=== PATIENT | female | born 1990 | race Caucasian/White ===

== ENCOUNTER 2017-10-09 20:12 | Observation (INO) ==
--- NOTE | 2017-10-09 21:31 | OB/GYN Progress Note ---
Date of Encounter: 10/09/17 Time of Encounter: 21:28 - Assessment and Plan (1) 23 weeks gestation of Status: Acute (2) Vaginal pain Status: Acute Closed cervix on exam UA with culture not indicated. Vaginosis panel sent. Discharged home. Vaginosis panel + for BV, ot contacted and Rx called to pharmacy of choice. Subjective - Subjective Interval history: 23+1 presents with complaints of vaginal pain. Pt states for the last week she has been having increasing pelvic pain and discomfort. Was seen at [facility] two days ago and was told she was negative for UTI and had a closed cervix. Reports good movement, denies vaginal bleeding or leaking of fluid , dysuria, or urgency with urination. care with Dr. Rodrigez. Antepartum ROS: movement normal, no loss of fluid, no vaginal bleeding, no contractions Objective - Vital Signs Vital Signs: Intake and Output 10/09/17 10/09/17 10/09/17 07:59 15:59 23:59 Other: Weight 66.3 kg Patient Weight 10/09/17 23:59 Weight 66.3 kg - Exam FHR: auscultation normal FHR comments: Appropriate for gesational age baseline 135 Abdomen: Present: normal appearance, soft, gravid Cervical dilation: Closed.
[2017-10-09 21:46] LABS: Bilirubin,Urine Small (Negative); Blood,Urine Moderate (Negative); Clarity,Urine Clear (Clear); Color,Urine Yellow (Yellow); Glucose,Urine (UA) Normal (Normal); Ketones,Urine Negative (Negative); Leukocyte Esterase,Urine Negative (Negative); Nitrite,Urine Negative (Negative); Protein,Urine Negative (Neg-Trace); Urobilinogen,Urine Normal (Normal)
[2017-10-09 21:47] LABS: Hyaline Casts,Urine Few per lpf (None-Few); Squamous Epithelial Cell,Urine Many per lpf (None-Few)
[2017-10-09 21:59] LABS: Mucus,Urine Few (Few)
[2017-10-09 22:00] LABS: Bacteria,Urine Few per hpf (None-Few); Uric Acid Crystals,Urine Present
[2017-10-09 22:48] LABS: Candida DNA Not Detected (Not Detect); Gardnerella DNA ***DETECTED*** (Not Detect); Trichomonas DNA Not Detected (Not Detect)
[2017-10-10 00:38] LABS: Amphetamine Screen,Urine Negative ng/mL (Cutoff=1000); Barbiturate Screen,Urine Negative ng/mL (Cutoff=200); Benzodiazepines Screen,Urine Negative ng/mL (Cutoff=200); Cannabinoid Screen,Urine Negative ng/mL (Cutoff = 50); Cocaine Screen,Urine Negative ng/mL (Cutoff= 300); Opiate Screen,Urine Negative ng/mL (Cutoff=300); Phencyclidine Screen,Urine Negative ng/mL (Cutoff=25)
== END 2017-10-09 22:24 | disposition home or self-care (01) ==
LOC: 1NENULAB
PROVIDERS: ADMIT Obstetrics & Gynecology; ATTEND Obstetrics & Gynecology

== ENCOUNTER → 2018-01-26 23:35 | Observation (INO) ==
[2018-01-26 22:32] LABS: Amphetamine Screen,Urine Negative ng/mL (Cutoff=1000); Barbiturate Screen,Urine Negative ng/mL (Cutoff=200); Benzodiazepines Screen,Urine Negative ng/mL (Cutoff=200); Cannabinoid Screen,Urine Negative ng/mL (Cutoff = 50); Cocaine Screen,Urine Negative ng/mL (Cutoff= 300); Opiate Screen,Urine Negative ng/mL (Cutoff=300); Phencyclidine Screen,Urine Negative ng/mL (Cutoff=25)
[2018-01-26 22:46] LABS: Bilirubin,Urine Negative (Negative); Blood,Urine Negative (Negative); Clarity,Urine Cloudy (Clear); Color,Urine Yellow (Yellow); Glucose,Urine (UA) Normal (Normal); Ketones,Urine Negative (Negative); Leukocyte Esterase,Urine Negative (Negative); Nitrite,Urine Negative (Negative); PH,Urine 6.5 pH Units (5.0-8.0); Protein,Urine Negative (Neg-Trace); Specific Gravity,Urine 1.015 (1.010-1.025); Urobilinogen,Urine Normal (Normal)
[2018-01-26 22:47] LABS: Basophils % 0.2 %; Eosinophils # 0.1 K/mcL (0.0-0.6); Eosinophils % 1.1 %; Hematocrit 28.7 % (35.3-44.9); Hemoglobin 10.1 g/dL (11.5-15.4); Immature Granulocytes % 0.4 % (0-4); Lymphocytes # 2.1 K/mcL (0.6-4.6); Lymphocytes % 23.1 %; Mean Corpuscular HGB Conc 35.2 g/dL (31.6-35.5); Mean Corpuscular Hemoglobin 30.7 pg (28.0-33.3); Mean Corpuscular Volume 87.2 fL (83.0-100.0); Mean Platelet Volume 10.5 fL (9.4-12.4); Monocytes # 0.7 K/mcL (0.0-1.3); Monocytes % 7.5 %; Neutrophils # 6.1 K/mcL (1.6-8.9); Platelet Count 177 K/mcL (140-400); Red Blood Count 3.29 M/mcL (3.82-4.97); Red Cell Distribution Width 11.9 % (11.5-14.5); Segmented Neutrophils % 67.7 %
[2018-01-26 22:47] LABS: Bacteria,Urine Few per hpf (None-Few); RBC,Urine 0-3 per hpf (0-3); Squamous Epithelial Cell,Urine Many per lpf (None-Few)
[2018-01-26 23:00] LABS: Protein/Creatinine Ratio,Urine 0.16 mg/mg (0.00-0.20)
--- NOTE | 2018-01-26 23:04 | OB/GYN Progress Note ---
Date of Encounter: 01/26/18 Time of Encounter: 22:55 - Assessment and Plan (1) 38 weeks gestation of Current Visit: Yes Status: Acute 38 weeks 5 days early term IUP GBS unknown UA negative BPs WNL PIH labs pending Serial VE pending Anticipate discharge Encourage patient to call primary OB and make appointment OPAL Subjective - Subjective Principal diagnosis: Abdominal pain Interval history: at 38 weeks and 5 days presents to triage with complaints abdominal and back pain. Denies vaginal bleeding and leaking fluid. States babys movements have "slowed down." Denies COONEY or epigastric pain, states had an episode five days ago when she saw "black spots" for approximately an hour and a half. Patient had been staying at [facility] in [place] due to daughter being hospitalized and states she felt it was due to being tired and unable to sleep well. Receives care with Dr. Rodrigez at [place], but has not been to a appointment for two months. Patient states she will be delivering here. Antepartum ROS: no loss of fluid, no vaginal bleeding Objective - Exam FHR: category 1 FHR comments: FHR 120 Auscultation: bilateral: normal Abdomen: Present: normal appearance, gravid (Vertex by Ha's ) Uterus: Absent: tenderness Cervical dilation: 1 Cervix effacement: 80 station: -2 Comments: VE per RN Reflexes +3 +2 pitting edema lower extremities - Labs Labs: Abnormal lab results RBC 3.29 M/mcL (3.82-4.97) L 01/26/18 22:30 Hgb 10.1 g/dL (11.5-15.4) L 01/26/18 22:30 Hct 28.7 % (35.3-44.9) L 01/26/18 22:30 Urine Clarity Cloudy (Clear) A 01/26/18 22:25
[2018-01-26 23:06] LABS: Hyaline Casts,Urine None Seen per lpf (None-Few); Mucus,Urine Moderate (Few)
[2018-01-26 23:11] LABS: Alanine Aminotransferase < 3 Units/L (7-52); Aspartate Amino Transferase 8 Units/L (13-39); BUN/Creatinine Ratio 8 (6-26); Blood Urea Nitrogen 4 mg/dL (6-20); Lactate Dehydrogenase 131 Units/L (140-271); Uric Acid 4.7 mg/dL (2.3-7.6); eGFR For African Americans > 60 (> 60); eGFR For Non-African Americans > 60 (> 60)
== END | disposition home or self-care (01) ==
LOC: 1NENULAB
PROVIDERS: ADMIT Advanced Practice Midwife; ATTEND Advanced Practice Midwife

== ENCOUNTER 2018-01-31 06:15 | Inpatient (IN) ==
[2018-01-31 00:56] LABS: Amphetamine Screen,Urine Negative ng/mL (Cutoff=1000); Barbiturate Screen,Urine Negative ng/mL (Cutoff=200); Benzodiazepines Screen,Urine Negative ng/mL (Cutoff=200); Cannabinoid Screen,Urine Negative ng/mL (Cutoff = 50); Cocaine Screen,Urine Negative ng/mL (Cutoff= 300); Opiate Screen,Urine Negative ng/mL (Cutoff=300); Phencyclidine Screen,Urine Negative ng/mL (Cutoff=25)
[2018-01-31 01:08] LABS: Basophils % 0.1 %; Eosinophils # 0.1 K/mcL (0.0-0.6); Eosinophils % 0.3 %; Hematocrit 30.7 % (35.3-44.9); Immature Granulocytes % 0.4 % (0-4); Lymphocytes % 13.3 %; Mean Corpuscular HGB Conc 35.8 g/dL (31.6-35.5); Mean Corpuscular Hemoglobin 30.5 pg (28.0-33.3); Monocytes % 6.3 %; Platelet Count 187 K/mcL (140-400); Red Blood Count 3.61 M/mcL (3.82-4.97); Red Cell Distribution Width 11.9 % (11.5-14.5); Segmented Neutrophils % 79.6 %
[2018-01-31 01:33] LABS: Alanine Aminotransferase < 3 Units/L (7-52); Aspartate Amino Transferase 8 Units/L (13-39); BUN/Creatinine Ratio 8 (6-26); Blood Urea Nitrogen 4 mg/dL (6-20); Lactate Dehydrogenase 121 Units/L (140-271); Uric Acid 4.6 mg/dL (2.3-7.6); eGFR For African Americans > 60 (> 60); eGFR For Non-African Americans > 60 (> 60)
[2018-01-31 01:42] LABS: Protein/Creatinine Ratio,Urine 0.15 mg/mg (0.00-0.20)
--- NOTE | 2018-01-31 01:47 | OB/GYN Progress Note ---
Date of Encounter: 01/31/18 Time of Encounter: 01:44 - Assessment and Plan (1) 39 weeks gestation of Current Visit: Yes Status: Acute (2) Uterine contractions during Current Visit: Yes Status: Acute Cervix remains unchanged after 2 hours of serial cervical exams. The patient has very uncomfortable, and having occasional early decelerations with contractions. Cervix feels stenotic. We will give 1 dose of Nubain for therapeutic rest, and recheck patient at 0600, unless condition warrants earlier exam (3) Elevated blood pressure affecting in third trimester, antepartum Current Visit: Yes Status: Acute Patient states she has had increased blood pressure since young daughter was admitted to ICU after drowning incident, and recent weeks. PIH labs negative. Subjective - Subjective Interval history: 39+3 weeks gestation presents to triage for evaluation of contractions. Patient is under the care of Dr. Rodrigez at [place]. Patient states she has been having contractions off and on for a couple days, her physician stripped her membranes at her office visit yesterday. At 10:00 PM her contractions became stronger more intense and closer together. Reports good movement, denies vaginal bleeding. Patient states she has had a increased discharged and her underwear is wet most of the time unsure if she leaking fluid. Antepartum ROS: loss of fluid, movement normal, contractions, no vaginal bleeding Objective - Vital Signs Vital Signs: Intake and Output 01/30/18 01/30/18 01/31/18 15:59 23:59 07:59 Other: Weight 68.6 kg Patient Weight 01/31/18 23:59 Weight 68.6 kg - Exam FHR: auscultation normal FHR comments: Baseline 135 Abdomen: Present: soft, gravid Cervical dilation: /-1 stenotic cervix. Pt had leep 210 after last child. - Labs Labs: Abnormal lab results WBC 15.1 K/mcL (4.3-11.1) H D 01/31/18 00:49 RBC 3.61 M/mcL (3.82-4.97) L 01/31/18 00:49 Hgb 11.0 g/dL (11.5-15.4) L 01/31/18 00:49 Hct 30.7 % (35.3-44.9) L 01/31/18 00:49 MCHC 35.8 g/dL (31.6-35.5) H 01/31/18 00:49 Neutrophils # 12.0 K/mcL (1.6-8.9) H 01/31/18 00:49 BUN 4 mg/dL (6-20) L 01/31/18 00:50 Creatinine 0.51 mg/dL (0.60-1.20) L 01/31/18 00:50 AST 8 Units/L (13-39) L 01/31/18 00:50 ALT < 3 Units/L (7-52) L 01/31/18 00:50 Lactate Dehydrogenase 121 Units/L (140-271) L 01/31/18 00:50 Urine Total Protein 26 mg/dL (1-14) H 01/31/18 00:10
[~2018-01-31 06:15] MED LIST: *HR* Nalbuphine 10 MG/ML AMPUL IV ONE; *HR* Nalbuphine 10 MG/ML AMPUL IVP PRN; Famotidine 20 MG/2 ML VIAL IVP PRN; Metoclopramide 10 MG/2 ML VIAL IVP PRN; Naloxone 0.4 MG/ML INJ IVP PRN; Ondansetron 4 MG/2 ML VIAL IVP PRN; Ringers Solution, Lactated 1,000 ML IVC SCH
--- NOTE | 2018-01-31 08:15 | OB/GYN History & Physical ---
Date of Encounter: 01/31/18 Time of Encounter: 08:10 Assessment and Plan (1) 39 weeks gestation of Current visit: Yes Status: Acute (2) Uterine contractions during Current visit: Yes Status: Acute Discussed with Dr. Ramirez, due to stenotic cervix, patient pain, 39 weeks gestation and elevated pressures we will admit patient Admit to labor and delivery Nubain and epidural as desired Anticipate (3) Elevated blood pressure affecting in third trimester, antepartum Current visit: Yes Status: Acute PIH labs negative History of Present Illness Chief complaint: Contractions HPI: Ms. Feng is a 27 year old female 39+3 weeks gestation patient with care with Dr. Rodrigez. Presents to triage with complaints of continuing contractions. Patient has been having contractions over the last couple days, but has increased in pain and discomfort since 10 PM last night. Complaining of contractions every 2-3 minutes that are painful. Reports good movement, denies vaginal bleeding, patient does states she has been leaking some fluid was negative ferning 2. Patient with minimum care only had [address] Rodrigez [facility] from 30 weeks to term patient says ultrasounds have been normal and she did do 1 hour glucose but we do not have those records. Labs: O+, rubella nonimmune, varicella immune, all other serologies negative. GBS negative per [facility]i lab on 01/26 lab Past Med Surg Social Fam HX - Past Medical History Medical history: asthma, thyroid disease Psychiatric history: anxiety - Social History Smoking Status: Current every day smoker Smokeless Tobacco Status: No Alcohol use: none Drug use: none - Family History Father Living Status: Still Living Hx Family Cardiac Disorders: Yes (HTN) Obstetrical History - Pregnancies : 5 Para: 2 Term: 1 : 1 Ab's: 2 Livin Medications and Allergies Albuterol Inhaler 1 tab PO DAILY 10/09/17 [History] Citalopram 40 mg PO DAILY 10/09/17 [History] [facility] G[facility] 1 tab PO DAILY 10/09/17 [History] Pepcid 01/31/18 [History] 3 Allergy/AdvReac Type Severity Reaction Status Date / Time clindamycin Allergy Hypotension Verified 01/31/18 00:22 Exam - Constitutional Constitutional: well developed, well nourished, no acute distress, average body habitus - Neck Neck exam: full ROM - Lungs Respiratory exam: CTAB - Cardiovascular Cardiovascular exam: RRR - Abdomen Abdomen: Present: gravid, non tender - Extremities Extremities exam: normal capillary refill, normal inspection Deep Tendon Reflex Grade: 2+ Normal - Cervix Dilation: 2 Effacement: 100 Station: -1 Results Result Diagrams: 01/31/18 00:49 01/31/18 00:50 Abnormal lab results WBC 15.1 K/mcL (4.3-11.1) H D 01/31/18 00:49 RBC 3.61 M/mcL (3.82-4.97) L 01/31/18 00:49 Hgb 11.0 g/dL (11.5-15.4) L 01/31/18 00:49 Hct 30.7 % (35.3-44.9) L 01/31/18 00:49 MCHC 35.8 g/dL (31.6-35.5) H 01/31/18 00:49 Neutrophils # 12.0 K/mcL (1.6-8.9) H 01/31/18 00:49 BUN 4 mg/dL (6-20) L 01/31/18 00:50 Creatinine 0.51 mg/dL (0.60-1.20) L 01/31/18 00:50 AST 8 Units/L (13-39) L 01/31/18 00:50 ALT < 3 Units/L (7-52) L 01/31/18 00:50 Lactate Dehydrogenase 121 Units/L (140-271) L 01/31/18 00:50 Urine Total Protein 26 mg/dL (1-14) H 01/31/18 00:10 All other labs normal. - VTE Reasons for not Prescribing Prophylaxis: Treatment not Indicated - Low risk for VTE
[2018-01-31] MEDS ORDERED: *HR* FentaNYL (PF) 100 MCG/2 ML VIAL EP ONE (08:20)
[2018-01-31] MEDS ORDERED: Epidural Premix (fent/bupiv) 110 ML EP SCH (08:30)
--- NOTE | 2018-01-31 08:30 | Anesthesia Evaluation PreOp ---
Date of Encounter: 01/31/18 Time of Encounter: 08:28 - Past History Planned Operation: catie Cardiac History: Denies any Significant Hx Pulmonary History: Smoker (1/2 ppd), Pack/yr (3) TAXICAB DRIVER History: Denies Any Significant HX Other Medical History: GERD, Other (anxiety disorder) Anesthesia History: No Prior Anesthetic Complications, Past Anesthesia (catie, bmt , d&c, wrist) : Yes Test: Positive Alcohol Use: none Drug use: none Medications and Allergies Albuterol Inhaler 1 tab PO DAILY 10/09/17 [History] Citalopram 40 mg PO DAILY 10/09/17 [History] [facility] G[facility] Vit[facility] 1 tab PO DAILY 10/09/17 [History] Pepcid 01/31/18 [History] 3 Allergy/AdvReac Type Severity Reaction Status Date / Time clindamycin Allergy Hypotension Verified 01/31/18 00:22 - Meds/Allergy Pre-op Review Medications Reviewed: Yes Allergies Reviewed: Yes Beta Blockers on Current Med List: No Anesthesia Results - Labs 01/31/18 00:49 01/31/18 00:50 Anesthesia Exam see nsg note Height: 5'1" Weight: 68 NPO (# of Hours): 3 Pain Scale: 8 Pain Scale Used: Numeric (1 - 10) - HEENT Pupil (Motor): Pupils equal Mallampati: II Teeth: Normal Oral Opening: Greater than 3 - TAXICAB DRIVER LOC: Oriented TAXICAB DRIVER Motor: Normal RUE, Normal LUE, Normal RLE, Normal LLE, Normal Face TAXICAB DRIVER Sensory: Normal: RUE, LUE, RLE, LLE, Face - Cardiac Rhythm: Regular Murmur: None - Pulmonary Breath Sounds: bilateral Clear Respiratory Effort: Symmetrical Anesthesia Assess/Plan ASA Score: 2 Modified Paul Scale for Level of Consciousness: Cooperative, oriented, and tranquil Anesthetic Plan: Regional Autologous Blood: No Monitoring Plan: Standard Monitors Recovery Plan: Other (risks discussed questions answered, consented)
[2018-01-31] MEDS ORDERED: Epidural Premix (fent/bupiv) 110 ML EP ONE (08:34)
--- NOTE | 2018-01-31 09:00 | Anesthesia Procedures ---
Date of Encounter: 01/31/18 Time of Encounter: 08:58 Procedures: Anesthesia - Epidural/Spinal Patient ID/Chart reviewed: Yes Patient examined: Yes OB Eval: Gestational age: 39.3 OB Eval: : 5 OB Eval: Hx Para: 2 OB Eval: Dilated at (cm): 3 OB Eval: Contractions: Non-stressed pattern Consent Obtained: Yes Supplemental Oxygen: None/Room Air Site Prep: Aseptic Technique, 0.5% Chlorhexidine/Alcohol Patient position: upright Local Anesthetic: Lidocaine 1% Amount of Local Anesthetic used: 4 Touhy Needle Gauge: 18 Touhy Needle Depth (cm): 5 Catheter Depth at Skin (cm): 15 Test Dose (1.5% Lido + Epi): Volume given (mls): 3 Test Dose Result: Negative Loading Dose: Fentanyl (mcg): 100 Loading Dose: Other: rop 0.2% 10cc Loading Dose Administered: Thru Touhy Needle Infusion Med: 0.125% Bupivacaine w/ 2 mcg/ml Fentanyl Infusion Rate (mls/hr): 14 (pcea 14cc/hr q30") Catheter Secured in Place: Tegaderm Interspace Used: L2-L3 Loss of Resistance (ISAURA): Yes Blood: No CSF: No Paresthesia: No Procedure: aseptic, tolerated well, effective Vitals + FHT's: 150/98 88 16 fht 133
[2018-01-31] MEDS ORDERED: Oxytocin 20 units/ LR 1000 mL 20 UNIT/1,000 ML BAG IVC ONE (09:54)
[2018-01-31] MEDS ORDERED: Oxytocin 20 units/ LR 1000 mL 20 UNIT/1,000 ML BAG IVC SCH ×2 (10:00→17:57)
--- NOTE | 2018-01-31 11:47 | OB Labor Progress Note ---
Date of Encounter: 01/31/18 Time of Encounter: 11:44 Labor Progress Note - Subjective Subjective: Patient resting comfortable with epidural in place. Patient denies any questions or concerns. - Cervix Cervix: 4/100/0 - Heart Tones Heart Tones: 115 bpm moderate variability +15x15 accels no decels noted. - [place]: 2-4 min apart - Interventions Interventions: SVE, AROM small amount of clear fluid. IUPC placed without difficulty. Patient tolerated well. - Plan Plan: Continue labor management anticipated
--- NOTE | 2018-01-31 14:24 | OB Labor Progress Note ---
Date of Encounter: 01/31/18 Time of Encounter: 14:22 Labor Progress Note - Subjective Subjective: Patient resting comfortably with epidural in placed. Patient denies any questions or concerns. Patient does report feeling pressure. - Cervix Cervix: 6/100/0 - Heart Tones Heart Tones: 115 bpm moderate variability +15x15 accels no decels noted. Cat. 1 tracing - Casselman Casselman: 2-3 min apart - Interventions Interventions: SVE, patient repositioned. - Plan Plan: Continue labor management.
--- NOTE | 2018-01-31 15:15 | OB/GYN Procedure Note ---
Delivery - Delivery Date: 01/31/18 Provider: Gloria Roca Intrapartum events: none Delivery augmentation: pitocin Delivery monitor: external FHT, external uterine Anesthesia: epidural Quantitated Blood Loss: 300 - (s) A Delivery Date: 01/31/18 Infant Delivery Time: 14:52 Presentation: vertex Position: CHAU Route of delivery: Gender: Male Viability: Viable Pounds: 6 Ounces: 6 Weight Gram: 2885 kg at 1 minute: 8 at 5 mins: 9 Shoulder Dystocia: not encountered Specimens collected: cord blood Placenta: spontaneous, uterine exploration Cord: 3 umbilical vessels - Repair Episiotomy: none Laceration Description: None - Complications Delivery complications: none - Disposition Mom disposition: stable in LDR [place] disposition: stable in LDR - Comments Comments: Called to LDR FHR in 70's, Pitocin off, O2 mask applied. Patient complete and + 2 station. Patient placed in stirrups and prepped for delivery. Under maternal effort patient spontaneously delivered a viable male over an intact perineum. was placed on maternal abdomen. Cord was clamped and cut after pulsations ceased. Cord blood was collected. Placenta delivered spontaneously and intact. Pericare provided all counts correct. remains skin to skin. Both mother and stable in LDR for 2 hour recovery.
[2018-01-31] MEDS ORDERED: Measles/Mumps/Rubella Vacc 0.5 ML VIAL SQ PRN (17:57)
[2018-01-31] MEDS ORDERED: Benzocaine/Menthol 56 GM AEROSOL SPRAY TP PRN (17:57)
[2018-01-31] MEDS ORDERED: Acetaminophen 325 MG TABLET PO PRN (17:57)
[2018-01-31] MEDS ORDERED: Lanolin 7 G OINT...G. TP PRN (17:57)
[2018-01-31] MEDS ORDERED: Ibuprofen 600 MG TABLET PO PRN (17:57)
[2018-02-01 07:53] LABS: Basophils % 0.2 %; Eosinophils # 0.1 K/mcL (0.0-0.6); Eosinophils % 0.7 %; Hematocrit 27.3 % (35.3-44.9); Hemoglobin 9.5 g/dL (11.5-15.4); Immature Granulocytes % 0.4 % (0-4); Lymphocytes # 2.5 K/mcL (0.6-4.6); Lymphocytes % 16.9 %; Mean Corpuscular HGB Conc 34.8 g/dL (31.6-35.5); Mean Corpuscular Hemoglobin 29.7 pg (28.0-33.3); Mean Corpuscular Volume 85.3 fL (83.0-100.0); Monocytes # 1.1 K/mcL (0.0-1.3); Monocytes % 7.2 %; Neutrophils # 11.1 K/mcL (1.6-8.9); Platelet Count 167 K/mcL (140-400); Red Cell Distribution Width 11.7 % (11.5-14.5); Segmented Neutrophils % 74.6 %
[2018-02-01 07:59] LABS: Alanine Aminotransferase < 3 Units/L (7-52); Aspartate Amino Transferase 12 Units/L (13-39); BUN/Creatinine Ratio 8 (6-26); Blood Urea Nitrogen 3 mg/dL (6-20); Lactate Dehydrogenase 157 Units/L (140-271); Uric Acid 4.5 mg/dL (2.3-7.6); eGFR For African Americans > 60 (> 60); eGFR For Non-African Americans > 60 (> 60)
[2018-02-01 08:27] VITALS: BP 118/78
[2018-02-01] MEDS ORDERED: Prenatal Vit/FA 1 EACH TABLET PO SCH (09:00)
[2018-02-01] MEDS ORDERED: Acetaminophen 325 MG TABLET PO ONE (09:36)
--- NOTE | 2018-02-01 11:08 | Discharge Summary ---
Date of Encounter: 02/01/18 Time of Encounter: 11:04 - Discharge Diagnosis (1) Vaginal delivery Priority: Primary Status: Acute Comments: Feeling well-pain controlled with by mouth pain meds Tolerating regular diet Ambulating independently Voiding independently Passing flatus, but no BM yet Lochia light Discharge home today (2) Breast feeding status of mother Priority: Secondary Status: Acute Comments: when necessary (3) anemia Priority: Secondary Status: Acute Comments: Continue iron twice a day through follow-up with primary OB - Discharge Medications Prescriptions: Ibuprofen [Motrin] 800 mg PO Q8HR PRN #30 tablet PRN Reason: Cramping Docusate [Colace] 100 mg PO BID #60 capsule Ferrous Sulfate 325 mg PO BID #60 tablet Home Medications: Albuterol Inhaler 1 tab PO DAILY 10/09/17 [History] Citalopram 40 mg PO DAILY 10/09/17 [History] [facility] G[facility] 1 tab PO DAILY 10/09/17 [History] Pepcid 01/31/18 [History] Acetaminophen [Tylenol] 650 mg PO Q6HR PRN tablet 02/01/18 [Rx] Benzocaine/Menthol [place] [Dermoplast [place]] 1 appl TP QID PRN aerosol 02/01/18 [Rx] Docusate [Colace] 100 mg PO BID #60 capsule 02/01/18 [Rx] Ferrous Sulfate 325 mg PO BID #60 tablet 02/01/18 [Rx] Ibuprofen [Motrin] 800 mg PO Q8HR PRN #30 tablet 02/01/18 [Rx] Lanolin [Lansinoh] 1 appl TP TID PRN oint...g. 02/01/18 [Rx] Allergies/Adverse Reactions: 3 Allergy/AdvReac Type Severity Reaction Status Date / Time clindamycin Allergy Hypotension Verified 01/31/18 00:22 Data Procedures and tests throughout hospitalization: Laboratory Tests 01/31/18 01/31/18 01/31/18 00:10 00:10 00:49 WBC 15.1 H D RBC 3.61 L Hgb 11.0 L Hct 30.7 L MCV 85.0 MCH 30.5 MCHC 35.8 H RDW 11.9 Plt Count 187 MPV 11.0 Immature Gran % 0.4 Seg Neutrophils % 79.6 Lymphocytes % 13.3 Monocytes % 6.3 Eosinophils % 0.3 Basophils % 0.1 Neutrophils # 12.0 H Lymphocytes # 2.0 Monocytes # 1.0 Eosinophils # 0.1 Basophils # 0.0 BUN Creatinine Est GFR ( Amer) Est GFR (Non-Af Amer) BUN/Creatinine Ratio Uric Acid AST ALT Lactate Dehydrogenase Urine Creatinine 179 Protein/Creatinin Ratio 0.15 Urine Total Protein 26 H Urine Opiates Screen Negative Ur Barbiturates Screen Negative Ur Phencyclidine Scrn Negative Ur Amphetamines Screen Negative U Benzodiazepines Scrn Negative Urine Cocaine Screen Negative U Marijuana (THC) Screen Negative Blood Type Antibody Screen 01/31/18 01/31/18 02/01/18 00:50 00:50 07:04 WBC 14.9 H RBC 3.20 L Hgb 9.5 L D Hct 27.3 L MCV 85.3 MCH 29.7 MCHC 34.8 RDW 11.7 Plt Count 167 MPV 11.0 Immature Gran % 0.4 Seg Neutrophils % 74.6 Lymphocytes % 16.9 Monocytes % 7.2 Eosinophils % 0.7 Basophils % 0.2 Neutrophils # 11.1 H Lymphocytes # 2.5 Monocytes # 1.1 Eosinophils # 0.1 Basophils # 0.0 BUN 4 L Creatinine 0.51 L Est GFR ( Amer) > 60 Est GFR (Non-Af Amer) > 60 BUN/Creatinine Ratio 8 Uric Acid 4.6 AST 8 L ALT < 3 L Lactate Dehydrogenase 121 L Urine Creatinine Protein/Creatinin Ratio Urine Total Protein Urine Opiates Screen Ur Barbiturates Screen Ur Phencyclidine Scrn Ur Amphetamines Screen U Benzodiazepines Scrn Urine Cocaine Screen U Marijuana (THC) Screen Blood Type O POSITIVE Antibody Screen NEGATIVE 02/01/18 07:04 WBC RBC Hgb Hct MCV MCH MCHC RDW Plt Count MPV Immature Gran % Seg Neutrophils % Lymphocytes % Monocytes % Eosinophils % Basophils % Neutrophils # Lymphocytes # Monocytes # Eosinophils # Basophils # BUN 3 L Creatinine 0.39 L Est GFR ( Amer) > 60 Est GFR (Non-Af Amer) > 60 BUN/Creatinine Ratio 8 Uric Acid 4.5 AST 12 L ALT < 3 L Lactate Dehydrogenase 157 Urine Creatinine Protein/Creatinin Ratio Urine Total Protein Urine Opiates Screen Ur Barbiturates Screen Ur Phencyclidine Scrn Ur Amphetamines Screen U Benzodiazepines Scrn Urine Cocaine Screen U Marijuana (THC) Screen Blood Type Antibody Screen Labs on day of discharge: Labs from last 24 hours 02/01/18 02/01/18 01/31/18 07:04 07:04 00:50 WBC 14.9 H RBC 3.20 L Hgb 9.5 L D Hct 27.3 L MCV 85.3 MCH 29.7 MCHC 34.8 RDW 11.7 Plt Count 167 MPV 11.0 Immature Gran % 0.4 Seg Neutrophils % 74.6 Lymphocytes % 16.9 Monocytes % 7.2 Eosinophils % 0.7 Basophils % 0.2 Neutrophils # 11.1 H Lymphocytes # 2.5 Monocytes # 1.1 Eosinophils # 0.1 Basophils # 0.0 BUN 3 L Creatinine 0.39 L Est GFR ( Amer) > 60 Est GFR (Non-Af Amer) > 60 BUN/Creatinine Ratio 8 Uric Acid 4.5 AST 12 L ALT < 3 L Lactate Dehydrogenase 157 Antibody Screen NEGATIVE Date of admission: 01/31/18 06:16 Primary care physician: PCP MEGHNA Consults: 01/31/18 17:57 Consult to Integrity Director [CONS] Routine Comment: Vaginal delivery, consult needed Discharging clinician: Zoraida Gregory Anticipated date of discharge: 02/01/18 - Patient Status Disposition: Home, Self-Care Condition: Good Functional capacity at discharge: independent ambulation Overall status at discharge: patient is progressing back to baseline - Discharge Instructions Follow Up With: NONE,PCP [Primary Care Provider] - Ksenia Rodrigez DO [Non-Partnered Physician] - - Diet and Activity Activity: increase activity as tolerated Diet: regular diet Hospital Course Reason for admission: IUP at term Delivery: Episiotomy: none Laceration: none Other procedures: none complications: none Discharge diagnosis: IUP at term delivered [place] baby: male Time Attestation: Total time spent providing and/or coordinating discharge services: Time Spent: Less than 30 minutes Exam - Constitutional Vitals: Temp Pulse Resp BP Pulse Ox 97.4 F L 71 12 118/78 95 02/01/18 08:00 02/01/18 08:00 02/01/18 08:00 02/01/18 08:00 02/01/18 08:00 General appearance IM: A&O X 3 - Respiratory Respiratory exam: Present: CTAB - Cardiovascular Cardiovascular exam IM: Present: RRR, +S1, +S2 - GI/Abdominal GI/Abdominal exam IM: normal bowel sounds, no peritoneal signs - Rectal Rectal exam: deferred - Uterine Tone: Firm Uterus Position: 1 Finger Below Umbilicus, Midline - Extremities Exam Extremities exam IM: Present: normal capillary refill, normal inspection, radial pulses palpable and symmetrical - Neurological Exam Neurological exam: oriented X3 - Psychiatric Additional comments: Patient denies history of anxiety and depression. Signs and symptoms of depression discussed and patient verbalizes when to call for help.
== END 2018-02-01 16:16 | disposition home or self-care (01) | DRG 560 ==
LOC: 1NENULAB → 1NENUOBS 17:27
PROVIDERS: ADMIT Advanced Practice Midwife; ATTEND Advanced Practice Midwife

== ENCOUNTER → 2018-02-03 11:00 | Observation (INO) ==
--- NOTE | 2018-02-02 14:24 | OB/GYN History & Physical ---
Date of Encounter: 02/02/18 Time of Encounter: 14:21 Assessment and Plan (1) Elevated blood pressure reading Current visit: Yes Status: Acute Monitor blood pressure every 30 minutes 4 hours, then every hour 4 hours, then every shift Reported blood pressure outside of parameters (2) Breast feeding status of mother Current visit: Yes Status: Acute PRN (3) anemia Current visit: Yes Status: Acute Monitor for s/sx of anemia. At this point, she is currently asymptomatic. History of Present Illness Chief complaint: hypertension HPI: Ms. Feng is a 27 year old female who is PPD 2 from . She presents from home with c/o elevated blood pressures from ER visit earlier today. She denies COONEY, vision changes, right upper quadrant pain, and swelling. Past Med Surg Social Fam HX - Past Medical History Medical history: asthma, thyroid disease Psychiatric history: anxiety - Social History Smoking Status: Current every day smoker Smokeless Tobacco Status: No Alcohol use: occasionally Drug use: none - Family History Father Living Status: Still Living Hx Family Cardiac Disorders: Yes (HTN) Obstetrical History - Pregnancies : 3 Para: 3 Term: 3 : 0 Ab's: 0 Livin Medications and Allergies Citalopram [CeleXA] 40 mg PO DAILY 02/02/18 [History] Ibuprofen 800 mg PO Q8HR PRN 02/02/18 [History] Pepcid 20 mg PO DAILY 02/02/18 [History] 3 Allergy/AdvReac Type Severity Reaction Status Date / Time clindamycin Allergy Hypotension Verified 02/02/18 07:02 Review of System OB All systems PM: reviewed and no additional remarkable complaints except as stated Exam - Vital Signs Vital signs: Initial Vital Signs Temp Pulse Resp BP Pulse Ox 98.3 F 98 16 144/98 99 02/02/18 12:15 02/02/18 12:15 02/02/18 12:15 02/02/18 12:15 02/02/18 12:15 - Constitutional Constitutional: well developed, well nourished, no acute distress, average body habitus - HEENT HEENT: Normocephaly, Mucus Membranes Moist - Neck Neck exam: full ROM - Lungs Respiratory exam: CTAB - Cardiovascular Cardiovascular exam: RRR, +S1, +S2 - Breasts Breast: bilateral: normal - Abdomen Abdomen: Present: bowel sounds normal, non tender - Extremities Extremities exam: normal capillary refill, normal inspection, radial pulses palpable and symmetrical - Uterus Uterus exam: Present: normal size, enlarged Results All other labs normal. - VTE Reasons for not Prescribing Prophylaxis: Treatment not Indicated - Low risk for VTE
--- NOTE | 2018-02-02 16:29 | Internal Medicine Consult Note ---
Date of Encounter: 02/02/18 Time of Encounter: 16:23 - Assessment and plan (1) Abscess Current Visit: Yes Status: Acute Assessment and plan: Small abscess at the right axillary stated post I&D in the ED. History of MRSA contact. We will treat her with Bactrim and topical antibiotics. OB nurse checked the Bactrim is okay for breast-feeding - Time Spent With Patient Total time spent is greater than 50% in coordination of care (as documented) at patient's floor/unit and/or counseling patient: 25 - 35 minutes Internal Medicine - CN: HPI - Data of Consult Consult date: 02/02/18 Requesting Physician: Zoraida Gregory - Consult Narrative Reason for consult: right axillar, small abscess History of present illness: Ms. Feng is a 27 year old female who has no significant medical history at the admitted to OB unit day 2 due to hypertensive urgency. She also has right axillary small abscess which was I&D today in the emergency room. We are consulted for possible antibiotics treatment. Patient is alert oriented 3 , she has small abscess for 2 days, she really did not complain any pain and just burning discomfort, mild erythema, Very superficial open. Mild erythema surrounding the abscess. Patient is afebrile, she does have WBC 12.8, potassium 2.9. She is very concerned because her 2 children has positive MRSA. We will treat with Bactrium to cover MRSA. Wound culture obtained Past Med Surg Social Fam HX - Past Medical History Medical history: asthma, thyroid disease Psychiatric history: anxiety - Social History Smoking Status: Current every day smoker Smokeless Tobacco Status: No Alcohol use: occasionally Drug use: none - Family History Father Living Status: Still Living Hx Family Cardiac Disorders: Yes (HTN) Internal Medicine - CN: Meds Citalopram [CeleXA] 40 mg PO DAILY 02/02/18 [History] Ibuprofen 800 mg PO Q8HR PRN 02/02/18 [History] Pepcid 20 mg PO DAILY 02/02/18 [History] 3 Allergy/AdvReac Type Severity Reaction Status Date / Time clindamycin Allergy Hypotension Verified 02/02/18 07:02 Internal Medicine - CN: Exam - Constitutional Vitals: Temp Pulse Resp BP Pulse Ox 98.0 F 76 16 129/88 98 02/02/18 15:53 02/02/18 15:53 02/02/18 15:53 02/02/18 15:53 02/02/18 15:53
[2018-02-02] MEDS: Sulfamethoxazole/Trimeth DS 1 EACH TABLET PO SCH ×2 (16:32→20:14)
[2018-02-03 04:02] LABS: Alanine Aminotransferase 3 Units/L (7-52); Aspartate Amino Transferase 8 Units/L (13-39); BUN/Creatinine Ratio 6 (6-26); Blood Urea Nitrogen 3 mg/dL (6-20); Lactate Dehydrogenase 166 Units/L (140-271); Uric Acid 4.2 mg/dL (2.3-7.6); eGFR For African Americans > 60 (> 60); eGFR For Non-African Americans > 60 (> 60)
[2018-02-03 06:02] LABS: Bilirubin,Urine Negative (Negative); Blood,Urine Trace (Negative); Clarity,Urine Clear (Clear); Color,Urine Yellow (Yellow); Glucose,Urine (UA) Normal (Normal); Ketones,Urine Negative (Negative); Leukocyte Esterase,Urine Trace (Negative); Nitrite,Urine Negative (Negative); Protein,Urine Negative (Neg-Trace); Specific Gravity,Urine 1.011 (1.010-1.025); Urobilinogen,Urine Normal (Normal)
[2018-02-03 06:03] LABS: Bacteria,Urine None Seen per hpf (None-Few); Hyaline Casts,Urine None Seen per lpf (None-Few); RBC,Urine 0-3 per hpf (0-3); Squamous Epithelial Cell,Urine Many per lpf (None-Few)
[2018-02-03 06:23] LABS: Protein/Creatinine Ratio,Urine 0.2 mg/mg (0.00-0.20)
[2018-02-03 07:42] VITALS: BP 123/83
[2018-02-03] MEDS: Sulfamethoxazole/Trimeth DS 1 EACH TABLET PO SCH (09:09)
--- NOTE | 2018-02-03 09:28 | Discharge Summary ---
Date of Encounter: 02/03/18 Time of Encounter: 09:29 - Discharge Diagnosis (1) Abscess Priority: Primary Status: Acute Comments: Will d/c home on Bactrim and Bactroban to f/u with pcp. (2) Elevated blood pressure affecting in third trimester, antepartum Priority: Primary Status: Acute Comments: BP much improved on Labetalol, no s/sx's of preeclampsia. - Discharge Medications Prescriptions: Labetalol [Trandate] 200 mg PO BID #60 tablet Sulfamethoxazole/Trimeth DS [Bactrim Ds] 1 each PO BID #20 tablet Home Medications: Citalopram [CeleXA] 40 mg PO DAILY 02/02/18 [History] Ibuprofen 800 mg PO Q8HR PRN 02/02/18 [History] Pepcid 20 mg PO DAILY 02/02/18 [History] Labetalol [Trandate] 200 mg PO BID #60 tablet 02/03/18 [Rx] Sulfamethoxazole/Trimeth DS [Bactrim Ds] 1 each PO BID #20 tablet 02/03/18 [Rx] Allergies/Adverse Reactions: 3 Allergy/AdvReac Type Severity Reaction Status Date / Time clindamycin Allergy Hypotension Verified 02/02/18 07:02 Data Procedures and tests throughout hospitalization: Laboratory Tests 02/03/18 02/03/18 02/03/18 03:21 05:30 05:30 BUN 3 L Creatinine 0.52 L Est GFR ( Amer) > 60 Est GFR (Non-Af Amer) > 60 BUN/Creatinine Ratio 6 Uric Acid 4.2 AST 8 L ALT 3 L Lactate Dehydrogenase 166 Urine Color Yellow Urine Clarity Clear Urine pH 7.0 Ur Specific [place] 1.011 Urine Protein Negative Urine Glucose (UA) Normal Urine Ketones Negative Urine Blood Trace H Urine Nitrite Negative Urine Bilirubin Negative Urine Urobilinogen Normal Ur Leukocyte Esterase Trace H Urine Microscopic RBC 0-3 Urine Microscopic WBC 5-15 H Ur Squamous Epith Cells Many H Urine Bacteria None Seen Hyaline Casts None Seen Urine Creatinine 65 Protein/Creatinin Ratio 0.20 Urine Total Protein 13 Labs on day of discharge: Labs from last 24 hours 02/03/18 02/03/18 02/03/18 05:30 05:30 03:21 BUN 3 L Creatinine 0.52 L Est GFR ( Amer) > 60 Est GFR (Non-Af Amer) > 60 BUN/Creatinine Ratio 6 Uric Acid 4.2 AST 8 L ALT 3 L Lactate Dehydrogenase 166 Urine Color Yellow Urine Clarity Clear Urine pH 7.0 Ur Specific [place] 1.011 Urine Protein Negative Urine Glucose (UA) Normal Urine Ketones Negative Urine Blood Trace H Urine Nitrite Negative Urine Bilirubin Negative Urine Urobilinogen Normal Ur Leukocyte Esterase Trace H Urine Microscopic RBC 0-3 Urine Microscopic WBC 5-15 H Ur Squamous Epith Cells Many H Urine Bacteria None Seen Hyaline Casts None Seen Urine Creatinine 65 Protein/Creatinin Ratio 0.20 Urine Total Protein 13 - Impressions Doing well, no s/sx's of preeclampsia, axilla non-tender. Appropriate lochia and tenderness. Date of admission: 02/02/18 12:08 Consults: 02/02/18 14:37 Consult to Hospitalist [CONS] Routine Consulting Provider: Hospitalist Moose Reason for Consult: Culture and antibiotics Time Notified: 14:38 Call Completed: Yes - Patient Status Disposition: Home, Self-Care Condition: Good Functional capacity at discharge: independent ambulation Overall status at discharge: patient is progressing back to baseline - Discharge Instructions - Diet and Activity Activity: increase activity as tolerated Diet: advance to your usual diet Hospital Course SPICE M[employer]ER Time Attestation: Total time spent providing and/or coordinating discharge services: Exam - Constitutional Vitals: Temp Pulse Resp BP Pulse Ox 98.1 F 88 20 123/83 98 02/03/18 07:40 02/03/18 07:40 02/03/18 07:40 02/03/18 07:40 02/03/18 07:40 General appearance IM: A&O X 3 - Respiratory Respiratory exam: Present: CTAB - Cardiovascular Cardiovascular exam IM: Present: RRR - GI/Abdominal GI/Abdominal exam IM: normal bowel sounds Incision: other (small axillary abcess with bandaid, dry) - Uterus Position: 2 Fingers Below Umbilicus - Neurological Exam Neurological exam: oriented X3 - VTE Reasons for not Prescribing Prophylaxis: Treatment not Indicated - Low risk for VTE
[~2018-02-03 11:00] MED LIST changes: -*HR* Nalbuphine 10 MG/ML AMPUL IV ONE; -*HR* Nalbuphine 10 MG/ML AMPUL IVP PRN; +Famotidine 20 MG TABLET PO SCH; -Famotidine 20 MG/2 ML VIAL IVP PRN; +Ibuprofen 400 MG TABLET PO PRN; -Metoclopramide 10 MG/2 ML VIAL IVP PRN; -Naloxone 0.4 MG/ML INJ IVP PRN; -Ondansetron 4 MG/2 ML VIAL IVP PRN
== END | disposition home or self-care (01) ==
LOC: 1NENUOBS
PROVIDERS: ADMIT Advanced Practice Midwife; ATTEND Advanced Practice Midwife